=== PATIENT | female | born 1950 | race Caucasian/White ===

== ENCOUNTER → 2018-09-11 | Outpatient (CLI) | payer MEDICARE, OTHER | LOC: RAD 08:29 | PROVIDERS: ATTEND Nurse Practitioner Family | DX: M41.20 Other idiopathic scoliosis, site unspecified (principal); Z53.8 Procedure and treatment not carried out for other reasons ==

== ENCOUNTER → 2018-10-03 | Outpatient (CLI) | payer OTHER ==
--- NOTE | 2018-10-03 14:47 | Diagnostic Imaging Report ---
PROCEDURE: MRI lumbar spine. TECHNIQUE: Multiplanar, multisequence MRI of the lumbar spine was performed without contrast. INDICATION: Chronic low back pain with left leg pain FINDINGS: There is some accentuation of the normal lumbar lordosis. There is also some left convexity degenerative lumbar rotoscoliosis. The vertebral body heights are well-maintained. There is no spondylolysis or spondylolisthesis. No fractures are identified. 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 At T12-L1, there is very minimal annular bulging and mild facet disease. There are some Modic changes in the endplates. There is no significant spinal or neural foraminal encroachment. At L1-L2, there is loss of disc height and signal intensity. There are Modic changes in the endplates. There is some annular bulging, facet disease and thickening of the ligamentum flavum. There is mild central spinal stenosis and mild bilateral neural foraminal encroachment, right greater than left. At L2-L3, there is loss of disc height and signal intensity and mild facet disease. There is mild encroachment upon the lateral recess bilaterally. There is [id number] bilateral neural foraminal encroachment. At L3-L4, there is mild annular bulging and facet disease. There is some mild central spinal stenosis and minimal neural foraminal encroachment. At L4-L5, there is slight loss of disc height and signal intensity. There is some annular bulging, facet disease and thickening of ligamentum flavum. There is some mild central spinal stenosis with encroachment upon the lateral recess bilaterally and mild bilateral neural foraminal encroachment. At L5-S1, there is annular bulging and facet disease. There are some [id number] spinal stenosis with encroachment upon the lateral recess bilaterally and moderate bilateral neural foraminal encroachment. The abdominal aorta is nonaneurysmal. Kidneys are normal in appearance. IMPRESSION: Diffuse lumbar spondylosis and multilevel degenerative disc disease as detailed above. Dictated by: Dictated on workstation # [id number]
== END ==
LOC: RAD 08:47
PROVIDERS: ATTEND Nurse Practitioner Family
DX: M47.816 Spondylosis without myelopathy or radiculopathy, lumbar region (principal); M51.27 Other intervertebral disc displacement, lumbosacral region; M48.07 Spinal stenosis, lumbosacral region; M51.36 Other intervertebral disc degeneration, lumbar region; M85.88 Other specified disorders of bone density and structure, other site; M41.25 Other idiopathic scoliosis, thoracolumbar region
CPT/HCPCS: 72148

== ENCOUNTER → 2020-07-06 | Outpatient (CLI) | payer MEDICARE ==
--- NOTE | 2020-07-06 12:52 | Diagnostic Imaging Report ---
INDICATION: Routine screening. COMPARISON: No prior mammograms are available for comparison. TECHNIQUE: 2D and 3D bilateral screening mammography was performed with CAD. FINDINGS: Both breasts are heterogeneously dense, limiting the sensitivity of mammography. There are benign calcifications scattered throughout both breasts. No dominant mass or malignant appearing microcalcifications are seen. The axillae are unremarkable. IMPRESSION: No mammographic features suspicious for malignancy are identified. ACR BI-RADS Category 2: Benign findings. Result letter will be mailed to the patient. Note: At least 10% of breast cancer is not imaged by mammography. Dictated by: Dictated on workstation # [id number]
== END ==
LOC: RAD 09:34
PROVIDERS: ATTEND Physician Assistant
DX: Z12.31 Encounter for screening mammogram for malignant neoplasm of breast (principal)
CPT/HCPCS: 77063; 77067

== ENCOUNTER → 2021-05-10 | Outpatient (CLI) | payer MEDICARE ==
--- NOTE | 2021-05-10 11:47 | Diagnostic Imaging Report ---
INDICATION: Postmenopausal female COMPARISON: None FINDINGS: AP Spine L2-L4: [BMD (g/cm2): 0.959] [T-Score: -2.0] [Z-Score: -0.6] [BMD Previous: na] [BMD % Change: na] LT Hip Neck: [BMD (g/cm2): 0.822] [T-Score: -1.6] [Z-Score: -0.1] LT Hip Total: [BMD (g/cm2):0.852] [T-Score:-1.2] [Z-Score: 0.0] [BMD Previous: na] [BMD % Change: na] RT Hip Neck: [BMD (g/cm2):0.791] [T-Score:-1.8] [Z-Score:-0.3] RT Hip Total: [BMD (g/cm2):0.850] [T-score:-1.3] [Z-Score:0.0] [BMD Previous:na] [BMD % Change:na] *Indicates significant change from prior examination based on 95% confidence level. World Health Organization criteria for BMD interpretation classify patients as Normal (T-score at or above -1.0), Osteopenic (T-score between -1.0 and -2.5) or Osteoporotic (T-score at or below -2.5). LIMITATIONS AND MODIFICATION: Bone mineral density in the lumbar spine may be falsely elevated due to scoliosis and degenerative change. FRACTURE RISK (FRAX SCORE): The ten year probability of (%): Major Osteoporotic Fracture: [10.4] Hip Fracture: [1.7] IMPRESSION: 1. Osteopenia (Low bone mass). 2. Baseline examination. 3. See below National Osteopor[employer] Foundation guidelines on when to potentially initiate pharmacologic therapy. Based on the National Osteoporosis Foundation Guidelines, pharmacologic treatment should be initiated in any of the following, unless clinical conditions suggest otherwise: * Any patient with prior fragility fracture of the hip or vertebrae. A spine fracture indicates 5X risk for subsequent spine fracture and 2X risk for subsequent hip fracture. * Osteoporosis (T-score <-2.5). * Postmenopausal women and men age 50 and older with low bone mass/osteopenia (T-score between -1.0 and -2.5) by DXA and 10-year major osteoporotic fracture greater than 20% or a 10-year probability of hip fracture greater than 3%. These fracture risks are supplied above in the FRAX score, if applicable. * Clinician judgement and/or patient preferences may indicate treatment for people with 10-year fracture probabilities above or below these levels. Dictated by: Dictated on workstation # [id number]
== END ==
LOC: RAD 09:00
PROVIDERS: ATTEND Obstetrics & Gynecology
DX: Z01.419 Encounter for gynecological examination (general) (routine) without abnormal findings (principal); M85.80 Other specified disorders of bone density and structure, unspecified site; Z78.0 Asymptomatic menopausal state
CPT/HCPCS: 77080